=== PATIENT | female | born 1965 | race Caucasian/White ===

== ENCOUNTER 2018-06-23 01:28 | Emergency (ER) | payer OTHER ==
--- NOTE | 2018-06-23 01:31 | ED Physician Documentation ---
PD HPI CHEST PAIN - Stated complaint Stated Complaint: CP - History obtained from History obtained from: Patient - History of Present Illness Timing - onset: How many minutes ago (75 minutes (1 hour and 15 minutes) [employer]) Timing - onset during: Sleep Timing - details: Abrupt onset Pain level max: 3 Pain level now: 0 Quality: Pressure Location: Substernal Radiation: Other (around chest bilaterally in bandlike distribution) Improved by: Nothing Worsened by: Other (no exacerbating factors) Associated symptoms: Nausea (mild). No: Shortness of air, Diaphoresis, Vomiting, General Weakness, Palpitations Similar symptoms before: Has not had sx before Recently seen: Not recently seen Review of Systems Constitutional: reports: Reviewed and negative Cardiac: reports: Chest pain / pressure. denies: Palpitations, Pedal edema, Calf pain Respiratory: reports: Reviewed and negative GI: reports: Nausea. denies: Abdominal Pain, Vomiting, Constipation, Diarrhea Musculoskeletal: denies: Extremity swelling PD PAST MEDICAL HISTORY - Past Medical History Cardiovascular: Hypertension, Pulmonary embolism Respiratory: None Endocrine/Autoimmune: None GI: None : Incontinence Musculoskeletal: Fibromyalgia Derm: None - Past Surgical History Past Surgical History: Yes Ortho: Shoulder arthroplasty /ASSET COORDINATOR: Other HEENT: Tonsil/Adenoidectomy - Present Medications Home Medications: Ambulatory Orders Medication Instructions Recorded Confirmed Lisinopril/Hydrochlorothiazide 20 - 25 each PO DAILY 08/09/13 08/07/15 [Lisinopril-Hctz 10-12.5 mg Tab] - Allergies Allergies/Adverse Reactions: Allergies Allergy/AdvReac Type Severity Reaction Status Date / Time erythromycin base Allergy Unknown Verified 06/23/18 01:35 [Erythromycin Base] Penicillins Allergy Unknown Verified 06/23/18 01:35 shellfish derived Allergy Anaphylaxis Verified 06/23/18 01:35 morphine AdvReac Nausea Verified 06/23/18 01:35 - Social History Does the pt smoke?: No Smoking Status: Unknown if ever smoked Does the pt drink ETOH?: No Does the pt have substance abuse?: No - Immunizations Immunizations are current?: Yes - POLST Patient has POLST: No PD ED PE NORMAL - Vitals Vital signs reviewed: Yes - General General: Alert and oriented X 3, No acute distress, Well developed/nourished - Cardiac Cardiac: RRR, No murmur, No gallop, No rub - Respiratory Respiratory: No respiratory distress, Clear bilaterally - Abdomen Abdomen: Soft, Non tender - Derm Derm: Normal color, Warm and dry - Extremities Extremities: No edema Results - Vitals Vitals: Vital Signs - 24 hr 06/23/18 06/23/18 06/23/18 01:31 02:16 03:17 Temperature 36.6 C Heart Rate 78 94 64 Respiratory 16 18 16 Rate Blood Pressure 151/100 H 136/67 H 120/72 O2 Saturation 99 97 96 06/23/18 04:20 Temperature Heart Rate 62 Respiratory 18 Rate Blood Pressure 118/75 O2 Saturation 97 Oxygen O2 Source Room air - EKG (time done) No standard instances Rate: Rate (enter#) Rhythm: NSR [place]: Normal Intervals: Normal AR QRS: Normal Ischemia: Normal ST segments Other comments: Other comments (PAC) - Labs Labs: Laboratory Tests 06/23/18 06/23/18 06/23/18 01:38 01:38 01:38 WBC 7.8 RBC 4.38 Hgb 13.2 Hct 38.4 MCV 87.6 MCH 30.1 MCHC 34.4 RDW 13.3 Plt Count 275 MPV 8.0 Neut # (Auto) 3.0 Lymph # (Auto) 3.6 H Fleming # (Auto) 0.5 Eos # (Auto) 0.5 Baso # (Auto) 0.1 Absolute Nucleated RBC 0.00 Nucleated RBC % 0.0 D-Dimer Sodium 136 Potassium 3.8 Chloride 102 Carbon Dioxide 27 Anion Gap 7.0 BUN 16 Creatinine 0.5 Estimated GFR (MDRD) 129 Glucose 116 H Calcium 8.6 Troponin I < 0.04 06/23/18 01:38 WBC RBC Hgb Hct MCV MCH MCHC RDW Plt Count MPV Neut # (Auto) Lymph # (Auto) Fleming # (Auto) Eos # (Auto) Baso # (Auto) Absolute Nucleated RBC Nucleated RBC % D-Dimer 461.6 H Sodium Potassium Chloride Carbon Dioxide Anion Gap BUN Creatinine Estimated GFR (MDRD) Glucose Calcium Troponin I - Rads (name of study) chest xray Radiology: Prelim report reviewed, See rad report CT chest (PE study) Radiology: Prelim report reviewed, See rad report PD MEDICAL DECISION MAKING - ED course Complexity details: reviewed old records, reviewed results, re-evaluated patient, considered differential, d/w patient ED course: mildly elevated d-dimer. Given h/o massive bilateral PE, CT chest performed (PE study), and this was unremarkable for acute findings. She was asymptomatic during ED stay and was comfortable with plan to d/c home. Departure - Departure Disposition: , Self Care Clinical Impression: Chest pain Condition: Good Instructions: ED Chest Pain Atypical Unkn Cause Comments: Follow up with your primary care physician within 1 week Discharge Date/Time: 06/23/18 04:41
[2018-06-23 01:58] LABS: BASOPHILS # (AUTO) 0.1 10^3/uL (0.0-0.1); BASOPHILS % (AUTO) 0.9 %; EOSINOPHILS # (AUTO) 0.5 10^3/uL (0.0-0.7); HGB - HEMOGLOBIN 13.2 g/dL (12.0-16.0); LYMPHOCYTES # (AUTO) 3.6 10^3/uL (1.5-3.5); LYMPHOCYTES % (AUTO) 46.2 %; MEAN CORPUSCULAR HEMOGLOBIN 30.1 pg (27.0-31.0); MEAN CORPUSCULAR HGB CONC 34.4 g/dL (32.0-36.0); MEAN CORPUSCULAR VOLUME 87.6 fL (81.0-99.0); MONOCYTES # (AUTO) 0.5 10^3/uL (0.0-1.0); MONOCYTES % (AUTO) 6.7 %; NEUTROPHILS % (AUTO) 39.2 %; PLT - PLATELET COUNT 275 10^3/uL (130-450); RED BLOOD COUNT 4.38 10^6/uL (4.20-5.40); RED CELL DISTRIBUTION WIDTH 13.3 % (12.0-15.0); WHITE BLOOD COUNT 7.8 x10^3/uL (4.8-10.8)
[2018-06-23 02:03] LABS: CALCIUM 8.6 mg/dL (8.5-10.3); CREATININE 0.5 mg/dL (0.4-1.0)
--- NOTE | 2018-06-23 02:35 | XRAY Report ---
Reason: chest pain Procedure Date: 06/23/2018 Accession Number: [id number] / [id number] Procedure: XR - Chest 2 View X-Ray CPT Code: 05524 FULL RESULT: EXAM: CHEST RADIOGRAPHY EXAM DATE: 06/23/2018 02:19 AM. CLINICAL HISTORY: Chest pain. COMPARISON: CHEST 2 VIEW PA/LAT 07/25/2014 8:43 PM [facility] 01/17/2010 5:48 AM. TECHNIQUE: 2 views. FINDINGS: Lungs/Pleura: No focal opacities evident. No pleural effusion. No pneumothorax. Normal volumes. Mediastinum: Heart and mediastinal contours are unremarkable. Other: None. IMPRESSION: Stable negative 2-view chest radiography. [facility]
[2018-06-23] MEDS ORDERED: IOVERSOL 320 100 ML VIAL IVP ONE ×2 (03:25→05:09)
--- NOTE | 2018-06-23 03:59 | CT Report ---
Reason: chest pain, h/o PE Procedure Date: 06/23/2018 Accession Number: [id number] / [id number] Procedure: CT - Chest Angio (PE) CPT Code: FULL RESULT: EXAM: CT ANGIOGRAM CHEST EXAM DATE: 06/23/2018 03:43 AM. CLINICAL HISTORY: Chest pain, history of pulmonary embolus. COMPARISON: [facility] 01/17/2010 5:48 AM. TECHNIQUE: Routine helical imaging was performed through the chest in the pulmonary arterial phase. IV Contrast: Yes. Reconstructions: Coronal 3D MIP reconstructions.Sagittal and coronal. In accordance with CT protocol optimization, one or more of the following dose reduction techniques were utilized for this exam: automated exposure control, adjustment of mA and/or KV based on patient size, or use of iterative reconstructive technique. FINDINGS: Pulmonary Arteries: Technically adequate for evaluation through the segmental arteries. No evidence for acute or chronic pulmonary emboli. Lungs/Pleura: No pneumonia, suspicious nodules, or edema. No effusions or pneumothorax. Mediastinum: No acute aortic syndrome. No cardiac enlargement. No adenopathy. Upper Abdomen: Post-cholecystectomy biliary ductal dilatation, likely normal variant. Colonic diverticulosis. Other: None. IMPRESSION: Negative pulmonary CT angiogram. No pulmonary emboli. RADIA
[2018-06-23 04:21] VITALS: BP 118/75
== END 2018-06-23 04:41 | disposition home or self-care (01) ==
LOC: ED 01:28
DX: R07.9 Chest pain, unspecified (principal); I10 Essential (primary) hypertension; Z86.711 Personal history of pulmonary embolism
CPT/HCPCS: 36415; 71046; 71275; 80048; 84484; 85025; 85379; 93005; 99283; 99284; Q9967

== ENCOUNTER 2020-12-30 10:53 | Outpatient (CLI) | payer OTHER | END 2020-12-30 23:59 | disposition home or self-care (01) | LOC: LAB.N 10:53 | PROVIDERS: ATTEND Physician Assistant Medical | DX: R05 Cough (principal); Z20.822 Contact with and (suspected) exposure to COVID-19 ==

== ENCOUNTER 2020-12-30 11:17 | Outpatient (CLI) | payer OTHER ==
--- NOTE | 2020-12-30 13:18 | XRAY Report ---
PROCEDURE: Chest 2 View X-Ray INDICATIONS: ACUTE BRONCHITIS TECHNIQUE: 2 view(s) of the chest. COMPARISON: 06/23/2018 and 07/25/2014. FINDINGS: Surgical changes and devices: None. Lungs and pleura: No pleural effusions or pneumothorax. Lungs are clear. Mediastinum: Mediastinal contours are normal. Heart size is normal. Bones and chest wall: No suspicious bony abnormalities. Soft tissues appear unremarkable. IMPRESSION: No acute cardiopulmonary disease process. Reviewed by: Ysabel Crawford MD, PhD on 12/30/2020 1:17 PM PDT Approved by: Ysabel Crawford MD, PhD on 12/30/2020 1:17 PM PDT Station ID: [id number]
== END 2020-12-30 23:59 | disposition home or self-care (01) ==
LOC: DI.N 11:17
PROVIDERS: ATTEND Physician Assistant Medical
DX: J20.9 Acute bronchitis, unspecified (principal); Z86.711 Personal history of pulmonary embolism

== ENCOUNTER 2021-06-04 08:00 | Outpatient (CLI) | payer OTHER | END 2021-06-04 23:59 | disposition home or self-care (01) | LOC: LAB.N 08:00 | PROVIDERS: ATTEND Family Medicine | DX: R30.0 Dysuria (principal) | CPT/HCPCS: 87077; 87086; 87181 ==